=== PATIENT | female | born 1995 | race African-American/Black ===

== ENCOUNTER 2022-01-21 13:21 | Emergency (ER) | payer OTHER ==
[2022-01-21 15:22] LABS: Basophils % (Auto) 0.4 % (0.0-1.8); Eosinophils % (Auto) 0.3 % (0.0-4.3); Hematocrit 37.4 % (30.3-42.9); Hemoglobin 12.9 gm/dl (10.1-14.3); Lymphocytes # (Auto) 1.2 K/mm3 (1.2-5.4); Lymphocytes % (Auto) 20.5 % (13.4-35.0); Mean Corpuscular HGB Conc 35 % (30-34); Mean Corpuscular Volume 88 fl (79-97); Monocytes # (Auto) 0.4 K/mm3 (0.0-0.8); Monocytes % (Auto) 6.2 % (0.0-7.3); Platelet Count 210 K/mm3 (140-440); Red Blood Count 4.25 M/mm3 (3.65-5.03); Red Cell Distribution Width 12.8 % (13.2-15.2)
--- NOTE | 2022-01-21 15:36 | XRay Report ---
CHEST 1 VIEW 01/21/2022 2:21 PM INDICATION / CLINICAL INFORMATION: COUGH. COMPARISON: None available. FINDINGS: SUPPORT DEVICES: None. HEART / MEDIASTINUM: No significant abnormality. LUNGS / PLEURA: No significant pulmonary or pleural abnormality. No pneumothorax. ADDITIONAL FINDINGS: No significant additional findings. IMPRESSION: 1. No acute findings. Signer Name: Garrick Alvarado DO Signed: 01/21/2022 3:31 PM Workstation Name: [id number]
[2022-01-21 15:43] LABS: Alanine Aminotransferase 10 units/L (7-56); Albumin 4.7 g/dL (3.9-5); Blood Urea Nitrogen 7 mg/dL (7-17); Calcium 9.4 mg/dL (8.4-10.2); Hemolysis Index 17
[2022-01-21 15:49] LABS: BUN/Creatinine Ratio 14
[2022-01-21] MEDS ORDERED: SODIUM CHLORIDE 0.9% 1000 ML 1,000 ML IV ONE (16:00)
[2022-01-21] MEDS ORDERED: FAMOTIDINE 20 MG/2 ML INJ IV ONE (16:00)
[2022-01-21] MEDS ORDERED: KETOROLAC 30 MG/1 ML INJ IV ONE (16:00)
[2022-01-21] MEDS ORDERED: ONDANSETRON 4 MG/2 ML INJ IV ONE (16:00)
--- NOTE | 2022-01-21 18:59 | Emergency Department Report ---
ED General Adult HPI - General Chief complaint: Dyspnea/Respdistress Stated complaint: IRIS Source: patient, family Mode of arrival: Wheelchair Limitations: No Limitations - History of Present Illness Initial comments: Per family, patient is a 27-year-old [place] female who has no past medical history and who presented to the ED with complaint of persistent nausea and vomiting and abdominal pain, mild dry cough, diffuse body aches and pains, generalized fatigue and joint pains after binging on alcohol 24 hours ago resulting in intractable nausea and vomiting. Patient's family stated that the patient pain is worse with movement and that in the last 8 hours she has not been able to keep anything down because of nausea and vomiting. Family stated that the patient has not had any diarrhea, dizziness, syncope, chest pain, shortness of breath, dysuria, urinary frequency and urgency, low back pain, sore throat or headache, fever and chills. MD Complaint: Nausea and vomiting, abdominal pain, generalized weakness and fatigue -: Sudden, hour(s) (24) Location: abdomen Radiation: non-radiation Severity scale (0 -10): 10 Quality: aching, sharp Consistency: constant Improves with: none Worsens with: eating, movement Associated Symptoms: denies other symptoms, cough, loss of appetite, malaise, nausea/vomiting. denies: confusion, chest pain, diaphoresis, fever/chills, headaches, rash, seizure, shortness of breath, syncope, weakness, other Treatments Prior to Arrival: none - Related Data Previous Rx's Medication Instructions Recorded Last Taken Type Dicyclomine [Bentyl] 20 mg PO Q6H PRN #24 tablet 01/21/22 Unknown Rx Famotidine [Pepcid] 20 mg PO BID #30 tablet 01/21/22 Unknown Rx Ondansetron [Zofran Odt] 4 mg PO Q8HR PRN #20 tab.rapdis 01/21/22 Unknown Rx cephALEXin [Keflex] 500 mg PO Q8HR #30 cap 01/21/22 Unknown Rx Allergies Allergy/AdvReac Type Severity Reaction Status Date / Time No Known Allergies Allergy Verified 01/21/22 15:11 ED Review of Systems ROS: Stated complaint: IRIS Other details as noted in HPI Constitutional: malaise, weakness. denies: chills, fever Eyes: denies: eye pain, eye discharge, vision change ENT: denies: ear pain, throat pain, dental pain, hearing loss, congestion Respiratory: cough. denies: shortness of breath, wheezing Cardiovascular: denies: chest pain, palpitations Endocrine: no symptoms reported Gastrointestinal: abdominal pain, nausea, vomiting. denies: diarrhea Genitourinary: denies: urgency, dysuria, discharge Musculoskeletal: arthralgia, myalgia. denies: back pain, joint swelling Skin: denies: rash, lesions Neurological: denies: headache, weakness, paresthesias Psychiatric: denies: anxiety, depression Hematological/Lymphatic: denies: easy bleeding, easy bruising ED Past Medical Hx - Medications Home Medications: Home Medications Medication Instructions Recorded Confirmed Last Taken Type Dicyclomine [Bentyl] 20 mg PO Q6H PRN #24 tablet 01/21/22 Unknown Rx Famotidine [Pepcid] 20 mg PO BID #30 tablet 01/21/22 Unknown Rx Ondansetron [Zofran Odt] 4 mg PO Q8HR PRN #20 tab.rapdis 01/21/22 Unknown Rx cephALEXin [Keflex] 500 mg PO Q8HR #30 cap 01/21/22 Unknown Rx ED Physical Exam - General Limitations: No Limitations General appearance: alert, in no apparent distress - Head Head exam: Present: atraumatic, normocephalic, normal inspection - Eye Eye exam: Present: normal appearance, PERRL, EOMI Pupils: Present: normal accommodation - ENT ENT exam: Present: normal exam, normal orophraynx, mucous membranes moist, TM's normal bilaterally, normal external ear exam - Neck Neck exam: Present: normal inspection, full ROM - Respiratory Respiratory exam: Present: normal lung sounds bilaterally. Absent: respiratory distress, wheezes, rales, rhonchi, stridor, chest wall tenderness, accessory muscle use, decreased breath sounds, prolonged expiratory - Cardiovascular Cardiovascular Exam: Present: regular rate, normal rhythm, normal heart sounds. Absent: systolic murmur, diastolic murmur, rubs, gallop - GI/Abdominal GI/Abdominal exam: Present: soft, normal bowel sounds. Absent: tenderness, guarding, rebound, rigid, hyperactive bowel sounds, hypoactive bowel sounds, organomegaly - Extremities Exam Extremities exam: Present: normal inspection, full ROM, normal capillary refill - Back Exam Back exam: Present: normal inspection, full ROM. Absent: tenderness, CVA tenderness (R), CVA tenderness (L), muscle spasm, paraspinal tenderness, vertebral tenderness - Neurological Exam Neurological exam: Present: alert, oriented X3, CN II-XII intact, normal gait, reflexes normal - Psychiatric Psychiatric exam: Present: normal affect, normal mood - Skin Skin exam: Present: warm, dry, intact, normal color. Absent: rash ED Course Vital Signs 01/21/22 01/21/22 13:46 21:30 Temperature 98.2 F Pulse Rate 99 H 83 Respiratory 18 12 Rate Blood Pressure 108/77 113/71 [Right] O2 Sat by Pulse 100 100 Oximetry ED Medical Decision Making - Lab Data Result diagrams: 01/21/22 14:47 01/21/22 14:47 - Radiology Data Radiology results: report reviewed, image reviewed [address] [address] XRay Report Signed Patient: KIERRA JONES MR#: [id number] 71 : 1995 Acct:[id number] Age/Sex: 27 / F ADM Date: 01/21/22 Loc: ED Attending Dr: Ordering Physician: GIOVANNA ALMANZAR Date of Service: 01/21/22 Procedure(s): XR chest 1V ap Accession Number(s): [id number] cc: GIOVANNA ALMANZAR Fluoro Time In Minutes: CHEST 1 VIEW 01/21/2022 2:21 PM INDICATION / CLINICAL INFORMATION: COUGH. COMPARISON: None available. FINDINGS: SUPPORT DEVICES: None. HEART / MEDIASTINUM: No significant abnormality. LUNGS / PLEURA: No significant pulmonary or pleural abnormality. No pneumothorax. ADDITIONAL FINDINGS: No significant additional findings. IMPRESSION: 1. No acute findings. Signer Name: Garrick Maza DO Signed: 01/21/2022 3:31 PM Workstation Name: [id number] Transcribed By: MANUEL Dictated By: GARRICK MAZA DO Electronically Authenticated By: GARRICK MAZA DO Signed Date/Time: 01/21/22 153 DD/ 30 TD/TT: - Medical Decision Making This is a 27-year-old [place] female who has no past medical history and who presented to the ED with complaint of persistent nausea and vomiting and abdominal pain, mild dry cough, diffuse body aches and pains, generalized fatigue and joint pains after binging on alcohol 24 hours ago resulting in intractable nausea and vomiting. Patient's family stated that the patient pain is worse with movement and that in the last 8 hours she has not been able to keep anything down because of nausea and vomiting. In the ED, patient is alert and oriented x3 and is not in any distress. Patient is hemodynamically stable. Patient was treated for pain, also received antiemetics, antacids and normal saline 1 L IV bolus x1. Lab test results are reviewed and are all nonactionable except for urinalysis that showed urinary tract infection. Chest x-ray showed no acute cardiopulmonary abnormalities or pneumonitis. On reevaluation, patient's nausea and vomiting resolved, patient felt better and he symptomatically stable. Patient was discharged home on medications and advised to follow-up with her primary care physician in 7 to 10 days for reevaluation return to the ED immediately if symptoms get worse. - Differential Diagnosis Gastroenteritis; dehydration; UTI; GERD; gastritis; pneumonia Critical care attestation.: If time is entered above; I have spent that time in minutes in the direct care of this critically ill patient, excluding procedure time. ED Disposition Clinical Impression: Nausea and vomiting in adult, Acute urinary tract infection, Viral gastro enteritis Abdominal pain Qualifiers: Abdominal location: generalized Qualified Code(s): R10.84 - Generalized abdominal pain Disposition: 01 HOME / SELF CARE / HOMELESS Is pt being admited?: No Does the pt Need Aspirin: No Condition: Stable Instructions: Nausea and Vomiting, Adult, [id number], Urinary Tract Infection, Adult, [id number], Abdominal Pain, Adult, [id number], Viral Gastroenteritis, Adult, [id number] Additional Instructions: All lab test results are reviewed and are all nonactionable. Chest x-ray showed no acute cardiopulmonary abnormalities or pneumonitis. Urinalysis showed significant urinary tract infection. Therefore take medication as advised, drink plenty of fluids and follow-up with your primary care physician in 7 to 10 days for reevaluation. Return to the ED immediately if symptoms get worse. Prescriptions: Dicyclomine [Bentyl] 20 mg PO Q6H PRN #24 tablet PRN Reason: abdominal pain cephALEXin [Keflex] 500 mg PO Q8HR #30 cap Famotidine [Pepcid] 20 mg PO BID #30 tablet Ondansetron [Zofran Odt] 4 mg PO Q8HR PRN #20 tab.rapdis PRN Reason: Nausea Referrals: JOCELIN CONNELLY MD [Primary Care Provider] - 7 Days Time of Disposition: 21:14 Print Language: HUNGARIAN
[2022-01-21 20:36] LABS: Bilirubin,Urine NEG (Negative); Blood,Urine LG (Negative); Color,Urine Yellow (Yellow); Mucus,Urine 2+ /HPF; Protein,Urine <15 mg/dL mg/dL (Negative); Urobilinogen,Urine < 2.0 mg/dL (<2.0)
[2022-01-21 21:33] VITALS: BP 113/71
== END 2022-01-21 21:34 | disposition home or self-care (01) ==
LOC: ED 13:21
DX: N39.0 Urinary tract infection, site not specified (principal); K52.9 Noninfective gastroenteritis and colitis, unspecified; Z79.899 Other long term (current) drug therapy
CPT/HCPCS: 36415; 71045; 80053; 81001; 84703; 85025; 87086; 96361; 96374; 96375; 99284; J1885; J2405; J3490; J7030; Q0162